=== PATIENT | female | born 1950 | race Caucasian/White ===

== ENCOUNTER → 2016-05-14 | Outpatient (CLI) | payer MEDICARE, BC ==
[~2016-05-14] MED LIST: ALTACE PO; AMBIEN PO; AMBIEN10 MG PO; ASPIRIN PO; AUGMENTIN875 MG PO; BACLOFEN10 MG PO; BUMEX2 MG PO; CELEBREX PO; CERTAGEN PO; CHLORTHALIDONE50 MG PO; CITALOPRAM HBR40 MG PO; CORDARONE200 M1 PO; COREG CR PO; COREG PO; COREG3.125 M1; COREG3.125 M1 PO; COUMADIN2.5 MG PO; COUMADIN5 M1 PO; COUMADIN5 MG PO; CYMBALTA PO; ELIQUIS5 MG PO; ESTRATEST H.S.1 TAB PO; ESTRATEST TABLE1 TAB PO; ETODOLAC500 MG PO; INDAPAMIDE2.5 M1 PO; K-DUR20 ME2 PO; KEFLEX500 M1 PO; KLONOPIN1 MG PO; LASIX PO; LASIX20 MG PO; LEVOTHROID50 MCG PO; LEVOTHYROXINE75 MCG PO; LEXAPRO PO; LORAZEPAM1 MG PO; LORTAB 7.5-5001 TAB PO; LORTAB 7.51 TAB 7.5/ DOB; LORTAB 7.51 TAB 7.5/ PO; MEDROL DOSEPAK4 MG PO; MOBIC PO; NEXIUM PO; OPSUMIT10 MG PO; OXYCODONE15 M1 PO; OXYGEN INH; PACERONE PO; PERCOCET 10/3251 TAB PO; PERCOCET10 PO; PERCOCET7.5 PO; PRADAXA75 MG PO; PRAVASTATIN SOD40 MG PO; PREMARIN PO; PRILOSEC PO; PRILOSEC20 M1 PO; PRILOSEC40 MG PO; PROMETRIUM100 MG PO; PYRIDIUM100 MG PO; REQUIP0.5 MG PO; ROBAXIN 750750 MG PO; ROBAXIN500 MG PO; SENNA LAXATIVE1 TAB PO; SILDENAFIL20 MG PO; SKELAXIN PO; SPIRONOLACTONE50 MG PO; SYNTHROID25 MCG PO; TETRACYCLINE PO; TOPROL XL 50 MG50 MG PO; TOPROL XL PO; VELETRI; VELETRI IV; VITAMIN D-32000 UNI1 PO; WELLBUTRIN XL150 MG PO; ZANAFLEX PO; ZANTAC PO; ZITHROMAX PO; ZOFRAN PO; ZOLOFT100 MG PO; ZYRTEC10 M1 PO; [UNRECOGNIZED DRUG - CODE] SUBQ
== END | disposition home or self-care (01) ==
LOC: CSSDAY 08:54
DX: D50.9 Iron deficiency anemia, unspecified (principal); K90.9 Intestinal malabsorption, unspecified
CPT/HCPCS: 96365; J1756

== ENCOUNTER → 2016-05-21 | Outpatient (CLI) | payer MEDICARE, BC | END | disposition home or self-care (01) | LOC: CSSDAY 08:56 | DX: D50.9 Iron deficiency anemia, unspecified (principal); K90.9 Intestinal malabsorption, unspecified; Z79.899 Other long term (current) drug therapy | CPT/HCPCS: 96365; J1756 ==

== ENCOUNTER → 2016-05-28 | Outpatient (CLI) | payer MEDICARE, BC | END | disposition home or self-care (01) | LOC: CSSDAY 08:51 | DX: D50.9 Iron deficiency anemia, unspecified (principal); K90.9 Intestinal malabsorption, unspecified; Z79.899 Other long term (current) drug therapy | CPT/HCPCS: 96365; J1756 ==

== ENCOUNTER → 2016-06-11 | Outpatient (CLI) | payer MEDICARE, BC | END | disposition home or self-care (01) | LOC: CSSDAY 12:49 | DX: D50.9 Iron deficiency anemia, unspecified (principal); K90.9 Intestinal malabsorption, unspecified; Z79.899 Other long term (current) drug therapy | CPT/HCPCS: 96365; J1756 ==